=== PATIENT | male | born 1940 | race Caucasian/White ===

== ENCOUNTER → 2016-07-10 | Outpatient (CLI) | payer OTHER | LOC: HYPER 07:13 | DX: S31.819A Unspecified open wound of right buttock, initial encounter (principal); E11.40 Type 2 diabetes mellitus with diabetic neuropathy, unspecified; Z79.4 Long term (current) use of insulin; Z79.84 Long term (current) use of oral hypoglycemic drugs; I25.10 Atherosclerotic heart disease of native coronary artery without angina pectoris; I10 Essential (primary) hypertension; K21.9 Gastro-esophageal reflux disease without esophagitis; X58.XXXA Exposure to other specified factors, initial encounter ==

== ENCOUNTER → 2016-10-09 | Outpatient (CLI) | payer OTHER | LOC: HYPER 07:20 | DX: E11.622 Type 2 diabetes mellitus with other skin ulcer (principal); L97.111 Non-pressure chronic ulcer of right thigh limited to breakdown of skin; E11.40 Type 2 diabetes mellitus with diabetic neuropathy, unspecified; I25.10 Atherosclerotic heart disease of native coronary artery without angina pectoris; I10 Essential (primary) hypertension; K21.9 Gastro-esophageal reflux disease without esophagitis; Z79.4 Long term (current) use of insulin; Z79.84 Long term (current) use of oral hypoglycemic drugs; Z72.89 Other problems related to lifestyle ==

== ENCOUNTER → 2016-11-06 | Outpatient (CLI) | payer OTHER | LOC: HYPER 07:12 | DX: S31.819D Unspecified open wound of right buttock, subsequent encounter (principal); L97.111 Non-pressure chronic ulcer of right thigh limited to breakdown of skin; E11.622 Type 2 diabetes mellitus with other skin ulcer; E11.40 Type 2 diabetes mellitus with diabetic neuropathy, unspecified; I25.10 Atherosclerotic heart disease of native coronary artery without angina pectoris; I10 Essential (primary) hypertension; K21.9 Gastro-esophageal reflux disease without esophagitis; Z85.828 Personal history of other malignant neoplasm of skin; Z79.4 Long term (current) use of insulin; Z79.84 Long term (current) use of oral hypoglycemic drugs; Z72.89 Other problems related to lifestyle; X58.XXXD Exposure to other specified factors, subsequent encounter ==

== ENCOUNTER → 2016-12-04 | Outpatient (CLI) | payer OTHER | LOC: HYPER 07:10 | DX: S31.819D Unspecified open wound of right buttock, subsequent encounter (principal); L97.111 Non-pressure chronic ulcer of right thigh limited to breakdown of skin; E11.622 Type 2 diabetes mellitus with other skin ulcer; M10.9 Gout, unspecified; E11.42 Type 2 diabetes mellitus with diabetic polyneuropathy; I25.10 Atherosclerotic heart disease of native coronary artery without angina pectoris; I10 Essential (primary) hypertension; K21.9 Gastro-esophageal reflux disease without esophagitis; Z98.49 Cataract extraction status, unspecified eye; Z72.89 Other problems related to lifestyle; Z79.4 Long term (current) use of insulin; Z79.84 Long term (current) use of oral hypoglycemic drugs; X58.XXXD Exposure to other specified factors, subsequent encounter ==

== ENCOUNTER → 2017-01-01 | Outpatient (CLI) | payer OTHER | LOC: HYPER 12-27 15:33 | DX: E11.622 Type 2 diabetes mellitus with other skin ulcer (principal); L97.111 Non-pressure chronic ulcer of right thigh limited to breakdown of skin; E11.40 Type 2 diabetes mellitus with diabetic neuropathy, unspecified; L89.301 Pressure ulcer of unspecified buttock, stage 1; I25.10 Atherosclerotic heart disease of native coronary artery without angina pectoris; I10 Essential (primary) hypertension; K21.9 Gastro-esophageal reflux disease without esophagitis; Z79.84 Long term (current) use of oral hypoglycemic drugs; Z79.4 Long term (current) use of insulin; Z72.89 Other problems related to lifestyle ==

== ENCOUNTER → 2017-02-26 | Outpatient (CLI) | payer OTHER | LOC: HYPER 06:54 | DX: S31.819D Unspecified open wound of right buttock, subsequent encounter (principal); E11.622 Type 2 diabetes mellitus with other skin ulcer; L97.111 Non-pressure chronic ulcer of right thigh limited to breakdown of skin; E11.42 Type 2 diabetes mellitus with diabetic polyneuropathy; M10.9 Gout, unspecified; I25.10 Atherosclerotic heart disease of native coronary artery without angina pectoris; I10 Essential (primary) hypertension; K21.9 Gastro-esophageal reflux disease without esophagitis; Z98.49 Cataract extraction status, unspecified eye; Z79.4 Long term (current) use of insulin; Z79.84 Long term (current) use of oral hypoglycemic drugs; Z72.89 Other problems related to lifestyle; X58.XXXD Exposure to other specified factors, subsequent encounter ==

== ENCOUNTER → 2017-03-26 | Outpatient (CLI) | payer OTHER | LOC: HYPER 07:11 | DX: E11.622 Type 2 diabetes mellitus with other skin ulcer (principal); L97.111 Non-pressure chronic ulcer of right thigh limited to breakdown of skin; E11.40 Type 2 diabetes mellitus with diabetic neuropathy, unspecified; E11.42 Type 2 diabetes mellitus with diabetic polyneuropathy; I25.10 Atherosclerotic heart disease of native coronary artery without angina pectoris; I10 Essential (primary) hypertension; K21.9 Gastro-esophageal reflux disease without esophagitis; Z79.84 Long term (current) use of oral hypoglycemic drugs; Z72.89 Other problems related to lifestyle; Z79.4 Long term (current) use of insulin ==

== ENCOUNTER → 2017-03-31 | Outpatient (CLI) | payer OTHER | LOC: CAT 11:12 | DX: M79.1 Myalgia (principal) ==

== ENCOUNTER → 2017-04-23 | Outpatient (CLI) | payer OTHER | LOC: HYPER 07:26 | DX: E11.622 Type 2 diabetes mellitus with other skin ulcer (principal); L98.411 Non-pressure chronic ulcer of buttock limited to breakdown of skin; M10.9 Gout, unspecified; E11.42 Type 2 diabetes mellitus with diabetic polyneuropathy; I25.10 Atherosclerotic heart disease of native coronary artery without angina pectoris; I10 Essential (primary) hypertension; K21.9 Gastro-esophageal reflux disease without esophagitis; Z98.49 Cataract extraction status, unspecified eye; Z85.53 Personal history of malignant neoplasm of renal pelvis; Z72.89 Other problems related to lifestyle; Z79.84 Long term (current) use of oral hypoglycemic drugs; Z79.4 Long term (current) use of insulin ==

== ENCOUNTER → 2017-05-27 | Outpatient (CLI) | payer OTHER ==
[~2017-05-27] MED LIST: ALLOPURINOL PO; ASPIRIN325 PO; HYDROCODONE-AP1 EAC6 PO; IMDUR 30 MG TAB30 M1 PO; IRON325 PO; LASIX 40 MG TAB40 M2 PO; LISINOPRIL5 MG PO; LOPERAMIDE 2 MG2 M1 PO; LOPRESSOR50 MG PO; LOTRISONE CREAM15 GM; LOVAZA1000 MG PO; METFORMIN PO; NAPROXEN PO; NEURONTIN300 MG PO; NOVOLOG100 UNIT/1 SUBQ; PROTONIX40 M4 PO; SENNA-S TABLET1 EACH PO; TOUJEO SOL300 UNIT/1 SUBQ; TRAMADOL 50 MG50 MG PO; TYLENOL EXTRA500 MG PO; ZANTAC 150MG T150 MG PO; ZOCOR20 MG PO
== END ==
LOC: HYPER 06:46
DX: E11.622 Type 2 diabetes mellitus with other skin ulcer (principal); L97.111 Non-pressure chronic ulcer of right thigh limited to breakdown of skin; S31.819D Unspecified open wound of right buttock, subsequent encounter; Z79.4 Long term (current) use of insulin; Z79.84 Long term (current) use of oral hypoglycemic drugs; E11.42 Type 2 diabetes mellitus with diabetic polyneuropathy; I25.10 Atherosclerotic heart disease of native coronary artery without angina pectoris; I10 Essential (primary) hypertension; K21.9 Gastro-esophageal reflux disease without esophagitis; Z72.89 Other problems related to lifestyle; X58.XXXD Exposure to other specified factors, subsequent encounter

== ENCOUNTER → 2017-06-24 | Outpatient (CLI) | payer OTHER | LOC: HYPER 06:51 | DX: E11.622 Type 2 diabetes mellitus with other skin ulcer (principal); L97.111 Non-pressure chronic ulcer of right thigh limited to breakdown of skin; E11.42 Type 2 diabetes mellitus with diabetic polyneuropathy; I10 Essential (primary) hypertension; I25.10 Atherosclerotic heart disease of native coronary artery without angina pectoris; K21.9 Gastro-esophageal reflux disease without esophagitis; Z72.89 Other problems related to lifestyle; Z79.84 Long term (current) use of oral hypoglycemic drugs; Z79.4 Long term (current) use of insulin; Z98.49 Cataract extraction status, unspecified eye ==

== ENCOUNTER → 2017-07-23 | Outpatient (CLI) | payer OTHER | LOC: HYPER 06:51 | DX: E11.622 Type 2 diabetes mellitus with other skin ulcer (principal); L98.411 Non-pressure chronic ulcer of buttock limited to breakdown of skin; L97.111 Non-pressure chronic ulcer of right thigh limited to breakdown of skin; E11.42 Type 2 diabetes mellitus with diabetic polyneuropathy; I25.10 Atherosclerotic heart disease of native coronary artery without angina pectoris; K21.9 Gastro-esophageal reflux disease without esophagitis; Z79.4 Long term (current) use of insulin; Z79.84 Long term (current) use of oral hypoglycemic drugs; Z85.828 Personal history of other malignant neoplasm of skin; Z72.89 Other problems related to lifestyle ==

== ENCOUNTER → 2017-12-23 | Outpatient (CLI) | payer OTHER | LOC: HYPER 06:52 | DX: E11.622 Type 2 diabetes mellitus with other skin ulcer (principal); L97.111 Non-pressure chronic ulcer of right thigh limited to breakdown of skin; L89.309 Pressure ulcer of unspecified buttock, unspecified stage; L98.411 Non-pressure chronic ulcer of buttock limited to breakdown of skin; E11.42 Type 2 diabetes mellitus with diabetic polyneuropathy; I25.10 Atherosclerotic heart disease of native coronary artery without angina pectoris; I10 Essential (primary) hypertension; K21.9 Gastro-esophageal reflux disease without esophagitis; Z79.4 Long term (current) use of insulin; Z79.84 Long term (current) use of oral hypoglycemic drugs ==

== ENCOUNTER → 2018-01-06 | Outpatient (CLI) | payer OTHER | LOC: HYPER 06:54 | DX: S31.809A Unspecified open wound of unspecified buttock, initial encounter (principal); E11.42 Type 2 diabetes mellitus with diabetic polyneuropathy; I25.10 Atherosclerotic heart disease of native coronary artery without angina pectoris; I10 Essential (primary) hypertension; K21.9 Gastro-esophageal reflux disease without esophagitis; Z79.4 Long term (current) use of insulin; Z79.84 Long term (current) use of oral hypoglycemic drugs; X58.XXXA Exposure to other specified factors, initial encounter; Y93.89 Activity, other specified; Y92.89 Other specified places as the place of occurrence of the external cause; Y99.8 Other external cause status ==

== ENCOUNTER → 2018-04-28 | Outpatient (CLI) | payer OTHER | LOC: HYPER 06:52 | DX: E11.622 Type 2 diabetes mellitus with other skin ulcer (principal); L98.411 Non-pressure chronic ulcer of buttock limited to breakdown of skin; L02.31 Cutaneous abscess of buttock; E11.42 Type 2 diabetes mellitus with diabetic polyneuropathy; I25.10 Atherosclerotic heart disease of native coronary artery without angina pectoris; I10 Essential (primary) hypertension; K21.9 Gastro-esophageal reflux disease without esophagitis; M19.90 Unspecified osteoarthritis, unspecified site; Z79.4 Long term (current) use of insulin; Z79.84 Long term (current) use of oral hypoglycemic drugs; Z95.5 Presence of coronary angioplasty implant and graft ==

== ENCOUNTER → 2020-01-10 | Outpatient (CLI) | payer OTHER | LOC: HYPER 07:37 | PROVIDERS: ATTEND Emergency Medicine Emergency Medical Services | DX: E11.622 Type 2 diabetes mellitus with other skin ulcer (principal); L89.312 Pressure ulcer of right buttock, stage 2; L98.412 Non-pressure chronic ulcer of buttock with fat layer exposed; E11.42 Type 2 diabetes mellitus with diabetic polyneuropathy; M10.9 Gout, unspecified; I25.10 Atherosclerotic heart disease of native coronary artery without angina pectoris; I10 Essential (primary) hypertension; K21.9 Gastro-esophageal reflux disease without esophagitis; Z85.520 Personal history of malignant carcinoid tumor of kidney; Z79.82 Long term (current) use of aspirin; Z79.4 Long term (current) use of insulin; Z96.649 Presence of unspecified artificial hip joint; Z98.49 Cataract extraction status, unspecified eye ==

== ENCOUNTER → 2020-01-26 | Outpatient (CLI) | payer OTHER | LOC: HYPER 13:01 | PROVIDERS: ATTEND Emergency Medicine | DX: E11.622 Type 2 diabetes mellitus with other skin ulcer (principal); L89.312 Pressure ulcer of right buttock, stage 2; L98.411 Non-pressure chronic ulcer of buttock limited to breakdown of skin; E11.42 Type 2 diabetes mellitus with diabetic polyneuropathy; M10.9 Gout, unspecified; I25.10 Atherosclerotic heart disease of native coronary artery without angina pectoris; I10 Essential (primary) hypertension; K21.9 Gastro-esophageal reflux disease without esophagitis; Z79.4 Long term (current) use of insulin; Z85.528 Personal history of other malignant neoplasm of kidney; Z96.649 Presence of unspecified artificial hip joint; Z95.5 Presence of coronary angioplasty implant and graft ==

== ENCOUNTER → 2020-02-09 | Outpatient (CLI) | payer OTHER | LOC: HYPER 12:59 | PROVIDERS: ATTEND Emergency Medicine | DX: E11.622 Type 2 diabetes mellitus with other skin ulcer (principal); L89.312 Pressure ulcer of right buttock, stage 2; L98.411 Non-pressure chronic ulcer of buttock limited to breakdown of skin; S31.819D Unspecified open wound of right buttock, subsequent encounter; E11.40 Type 2 diabetes mellitus with diabetic neuropathy, unspecified; M10.9 Gout, unspecified; I25.10 Atherosclerotic heart disease of native coronary artery without angina pectoris; I10 Essential (primary) hypertension; K21.9 Gastro-esophageal reflux disease without esophagitis; Z79.4 Long term (current) use of insulin; X58.XXXD Exposure to other specified factors, subsequent encounter ==

== ENCOUNTER → 2020-02-16 | Outpatient (CLI) | payer OTHER | LOC: HYPER 13:06 | PROVIDERS: ATTEND Emergency Medicine Emergency Medical Services | DX: E11.622 Type 2 diabetes mellitus with other skin ulcer (principal); L89.312 Pressure ulcer of right buttock, stage 2; L98.411 Non-pressure chronic ulcer of buttock limited to breakdown of skin; S31.819D Unspecified open wound of right buttock, subsequent encounter; E11.40 Type 2 diabetes mellitus with diabetic neuropathy, unspecified; M10.9 Gout, unspecified; I25.10 Atherosclerotic heart disease of native coronary artery without angina pectoris; I10 Essential (primary) hypertension; K21.9 Gastro-esophageal reflux disease without esophagitis; Z79.4 Long term (current) use of insulin; X58.XXXD Exposure to other specified factors, subsequent encounter ==

== ENCOUNTER → 2020-03-08 | Outpatient (CLI) | payer OTHER | LOC: HYPER 10:12 | PROVIDERS: ATTEND Emergency Medicine | DX: E11.622 Type 2 diabetes mellitus with other skin ulcer (principal); L89.312 Pressure ulcer of right buttock, stage 2; L98.412 Non-pressure chronic ulcer of buttock with fat layer exposed; E11.40 Type 2 diabetes mellitus with diabetic neuropathy, unspecified; E11.42 Type 2 diabetes mellitus with diabetic polyneuropathy; E66.9 Obesity, unspecified; I25.10 Atherosclerotic heart disease of native coronary artery without angina pectoris; I10 Essential (primary) hypertension; K21.9 Gastro-esophageal reflux disease without esophagitis; M10.9 Gout, unspecified; Z79.4 Long term (current) use of insulin; Z79.84 Long term (current) use of oral hypoglycemic drugs; Z95.5 Presence of coronary angioplasty implant and graft; Z96.649 Presence of unspecified artificial hip joint; Z68.29 Body mass index [BMI] 29.0-29.9, adult ==

== ENCOUNTER → 2020-04-05 | Outpatient (CLI) | payer OTHER | LOC: HYPER 12:55 | PROVIDERS: ATTEND Emergency Medicine | DX: E11.622 Type 2 diabetes mellitus with other skin ulcer (principal); L89.312 Pressure ulcer of right buttock, stage 2; L98.412 Non-pressure chronic ulcer of buttock with fat layer exposed; E11.42 Type 2 diabetes mellitus with diabetic polyneuropathy; E66.9 Obesity, unspecified; I25.10 Atherosclerotic heart disease of native coronary artery without angina pectoris; I10 Essential (primary) hypertension; K21.9 Gastro-esophageal reflux disease without esophagitis; M10.9 Gout, unspecified; Z79.4 Long term (current) use of insulin; Z79.84 Long term (current) use of oral hypoglycemic drugs; Z95.5 Presence of coronary angioplasty implant and graft; Z96.649 Presence of unspecified artificial hip joint; Z68.29 Body mass index [BMI] 29.0-29.9, adult ==

== ENCOUNTER → 2020-05-15 | Outpatient (CLI) | payer OTHER | LOC: HYPER 09:00 | PROVIDERS: ATTEND Emergency Medicine | DX: E11.622 Type 2 diabetes mellitus with other skin ulcer (principal); L89.312 Pressure ulcer of right buttock, stage 2; L98.412 Non-pressure chronic ulcer of buttock with fat layer exposed; E11.42 Type 2 diabetes mellitus with diabetic polyneuropathy; M10.9 Gout, unspecified; I25.10 Atherosclerotic heart disease of native coronary artery without angina pectoris; I10 Essential (primary) hypertension; K21.9 Gastro-esophageal reflux disease without esophagitis; Z79.4 Long term (current) use of insulin; Z95.5 Presence of coronary angioplasty implant and graft; Z79.82 Long term (current) use of aspirin ==